=== PATIENT | male | born 1995 | race Caucasian/White ===

== ENCOUNTER 2024-03-07 09:07 | Emergency (ER) | payer BC ==
[~2024-03-07] VITALS: Ht 182.9 cm; Wt 99.5 kg
[2024-03-07 09:18] VITALS: BP 134/80; PULSE 53; RESP 16; TEMP 97.8; O2SAT 100
--- NOTE | 2024-03-07 10:39 | NUR ---
pt left without discharge papers. Provider informed.
== END 2024-03-07 10:39 | disposition home or self-care (01) ==
LOC: ER 09:07
DX: S61.412A Laceration without foreign body of left hand, initial encounter (principal); R55 Syncope and collapse; W26.8XXA Contact with other sharp object(s), not elsewhere classified, initial encounter; Y93.89 Activity, other specified; Y92.89 Other specified places as the place of occurrence of the external cause; Y99.8 Other external cause status
CPT/HCPCS: 99281